=== PATIENT | male | born 1975 | race Caucasian/White ===

== ENCOUNTER 2018-01-09 16:04 | Inpatient (IN) ==
[2018-01-09] MEDS ORDERED: Ondansetron 4 MG/2 ML VIAL IVP ONE (16:35)
[2018-01-09] MEDS ORDERED: 0.9 % Sodium Chloride 1,000 ML IVC ONE ×2 (16:35→17:25)
[2018-01-09] MEDS ORDERED: *HR* FentaNYL (PF) 100 MCG/2 ML VIAL IVP ONE ×2 (16:36→18:33)
--- NOTE | 2018-01-09 16:37 | Emergency Department Note ---
Disposition Clinical Impression: Small bowel obstruction, Hypercalcemia Disposition: Admitted As Inpatient Condition: Fair Time of Disposition: 17:35 Abdominal Pain HPI - General Chief Complaint: ED Abdominal Pain Stated Complaint: abnormal ct results/ called Time Seen by Provider: 01/09/18 16:22 Source: patient Mode of arrival: ambulatory Limitations: no limitations Nursing Notes Reviewed: Yes Vital Signs Reviewed: Yes - History of Present Illness HPI Narrative: 42-year-old male presents for evaluation after an abnormal CT. States intermittent abdominal pain for years. Patient states the pain typically starts and then improves over [address] hours. Patient had a CT scan and pelvis obtained earlier today which showed evidence of bowel obstruction and was told to go the ER for evaluation. Patient states he is having several episodes of nonbilious nonbloody emesis. Patient states he had several episodes of loose stools today. Still passing gas. Reports a remote history of bowel resection with anastomosis is child. No history of bowel obstructions notable in the past. Denies any fevers. Denies any chest pain. reports diffuse mid abdominal pain. Pain Scale: 10 - Related Data Home Medications Medication Instructions Recorded Confirmed Ibuprofen [Motrin] 800 mg PO Q8HR PRN 09/14/16 01/09/18 Pantoprazole Sodium [Protonix] 40 mg PO BID 09/14/16 01/09/18 amLODIPine [Norvasc] 5 mg PO DAILY 09/14/16 01/09/18 Lisinopril/Hydrochlorothiazide 1 each PO DAILY 01/09/18 01/09/18 [Zestoretic 20-25 mg Tablet] Psyllium Husk [Fiber] 1.04 gm PO DAILY 01/09/18 01/09/18 Allergies Allergy/AdvReac Type Severity Reaction Status Date / Time Amoxicillin Allergy Hives Verified 09/14/16 09:09 Penicillins [PCN] Allergy Hives Verified 09/14/16 09:09 All systems ED: reviewed and negative except as stated. Constitutional: Denies: fever ENT ED: Denies: ear pain Cardiovascular: Denies: chest pain Respiratory: Denies: cough, dyspnea Gastrointestinal: Reports: abdominal pain, nausea, vomiting, diarrhea Abdominal Pain PMH - Past Medical History Medical history: Reports: GERD, hyperlipidemia, hypertension Male Surgical History: Reports: hip replacement Psychiatric history: Reports: no psych history - Social History Smoking status: Never smoker Alcohol use: Reports: none Drug use: Reports: none Physical Exam - General Limitations: no limitations General appearance: alert - Head Head exam: atraumatic, normocephalic, normal inspection - Eye Eye exam: Present: normal appearance, PERRL, EOMI - ENT ENT exam: normal exam, normal oropharynx, mucous membranes moist - Neck Neck exam: Present: normal inspection, full ROM, trachea midline - Chest Chest inspection: Present: normal inspection - Respiratory Respiratory exam: Present: normal lung sounds bilaterally - Cardiovascular Cardiovascular exam: Present: regular rate, normal rhythm. Absent: systolic murmur - Abdominal Exam Abdominal exam: Present: soft, tenderness. Absent: distention, guarding, rebound - Extremities Exam Extremities exam: Present: normal inspection - Back Exam Back exam: Present: normal inspection - Neurological Exam Neurological exam: Present: alert, oriented X3, CN II-XII intact - Skin Skin exam: Present: warm, dry, intact, normal color Course Course Narrative: Patient seen and examined. Patient's CAT scan reviewed from earlier today. Shows a partial small bowel obstruction. Patient will get basic labs IV fluids. Patient be admitted for further evaluation and monitoring. Vital Signs Temperature 98.7 F 01/09/18 16:16 Pulse Rate 113 01/09/18 16:16 Respiratory Rate 18 01/09/18 16:16 Blood Pressure 149/95 01/09/18 16:16 O2 Sat by Pulse Oximetry 99 01/09/18 16:16 Temperature 98.7 F 01/09/18 16:16 Pulse Rate 114 01/09/18 17:25 Respiratory Rate 12 01/09/18 17:25 Blood Pressure 140/90 01/09/18 17:25 O2 Sat by Pulse Oximetry 95 01/09/18 17:25 Oxygen Delivery Oxygen Delivery Room Air Abdominal Pain - MDM Narrative Medical decision making narrative: Patient presents with outpatient CT which showed a small bowel obstruction. Case was discussed with the surgeon. Patient will be admitted to hospital service for further evaluation monitoring. Patient's abdominal exam currently is nonsurgical. Patient's symptoms appear to be controlled. Patient is given IV fluids anti-medics and pain control. Patient will be admitted to ensure symptom resolution. Patient does have an elevated white count however given the clinical scenario patient's white count likely due to margination. Patient was not started on antibiotics emergent arm. Patient was treated with IV fluid hydration. Patient was also noted to be hypercalcemic. Patient's lactate was normal. - Lab Data Lab results reviewed: Yes I reviewed the patient's lab results. Result diagrams: 01/09/18 16:49 01/09/18 16:49 Lab Results 01/09/18 01/09/18 01/09/18 Range/Units 16:49 16:49 16:49 WBC 18.4 H (4.3-11.1) K/mcL RBC 6.27 H (4.19-5.50) M/mcL Hgb 17.1 H (12.9-16.9) g/dL Hct 50.4 H (37.5-50.1) % MCV 80.4 L (83.0-100.0) fL MCH 27.3 L (28.0-33.3) pg MCHC 33.9 (31.6-35.5) g/dL RDW 14.8 H (11.5-14.5) % Plt Count 270 (140-400) K/mcL MPV 10.0 (9.4-12.4) fL Immature Gran % 0.5 (0-4) % Seg Neutrophils % 86.2 % Lymphocytes % 5.8 % Monocytes % 7.2 % Eosinophils % 0.1 % Basophils % 0.2 % Neutrophils # 15.8 H (1.6-8.9) K/mcL Lymphocytes # 1.1 (0.6-4.6) K/mcL Monocytes # 1.3 (0.0-1.3) K/mcL Eosinophils # 0.0 (0.0-0.6) K/mcL Basophils # 0.0 (0.0-0.2) K/mcL Sodium 131 L (136-145) mEq/L Potassium 3.8 (3.5-5.1) mEq/L Chloride 93 L (98-107) mEq/L Carbon Dioxide 25 (23-29) mEq/L BUN 16 (6-20) mg/dL Creatinine 0.97 (0.70-1.30) mg/dL Est GFR ( Amer) > 60 (> 60) Est GFR (Non-Af Amer) > 60 (> 60) BUN/Creatinine Ratio 16 (6-26) Glucose 125 H (70-105) mg/dL Calculated Osmolality 275 L (280-300) Lactic Acid 2.2 (0.5-2.2) mmol/L Calcium 10.4 H (8.6-10.3) mg/dL Total Bilirubin 0.8 (0.3-1.0) mg/dL Direct Bilirubin 0.1 (0.0-0.2) mg/dL Indirect Bilirubin 0.7 (0.0-1.2) mg/dL AST 25 (13-39) Units/L ALT 36 (7-52) Units/L Alkaline Phosphatase 123 H (34-104) Units/L Serum Total Protein 8.1 (6.4-8.9) g/dL Albumin 4.8 (3.5-5.7) g/dL Globulin 3.3 (2.4-3.5) g/dL Albumin/Globulin Ratio 1.5 (1.1-2.2) Lipase 20 (11-82) Units/L Urine Color (Yellow) Urine Clarity (Clear) Urine pH (5.0-8.0) pH Units Ur Specific [place] (1.010-1.025) Urine Protein (Neg-Trace) mg/dL Urine Glucose (UA) (Normal) mg/dL Urine Ketones (Negative) mg/dL Urine Blood (Negative) Urine Nitrite (Negative) Urine Bilirubin (Negative) Urine Urobilinogen (Normal) mg/dL Ur Leukocyte Esterase (Negative) Ur Culture Indicated? (NO) 01/09/18 Range/Units 17:03 WBC (4.3-11.1) K/mcL RBC (4.19-5.50) M/mcL Hgb (12.9-16.9) g/dL Hct (37.5-50.1) % MCV (83.0-100.0) fL MCH (28.0-33.3) pg MCHC (31.6-35.5) g/dL RDW (11.5-14.5) % Plt Count (140-400) K/mcL MPV (9.4-12.4) fL Immature Gran % (0-4) % Seg Neutrophils % % Lymphocytes % % Monocytes % % Eosinophils % % Basophils % % Neutrophils # (1.6-8.9) K/mcL Lymphocytes # (0.6-4.6) K/mcL Monocytes # (0.0-1.3) K/mcL Eosinophils # (0.0-0.6) K/mcL Basophils # (0.0-0.2) K/mcL Sodium (136-145) mEq/L Potassium (3.5-5.1) mEq/L Chloride (98-107) mEq/L Carbon Dioxide (23-29) mEq/L BUN (6-20) mg/dL Creatinine (0.70-1.30) mg/dL Est GFR ( Amer) (> 60) Est GFR (Non-Af Amer) (> 60) BUN/Creatinine Ratio (6-26) Glucose (70-105) mg/dL Calculated Osmolality (280-300) Lactic Acid (0.5-2.2) mmol/L Calcium (8.6-10.3) mg/dL Total Bilirubin (0.3-1.0) mg/dL Direct Bilirubin (0.0-0.2) mg/dL Indirect Bilirubin (0.0-1.2) mg/dL AST (13-39) Units/L ALT (7-52) Units/L Alkaline Phosphatase (34-104) Units/L Serum Total Protein (6.4-8.9) g/dL Albumin (3.5-5.7) g/dL Globulin (2.4-3.5) g/dL Albumin/Globulin Ratio (1.1-2.2) Lipase (11-82) Units/L Urine Color Yellow (Yellow) Urine Clarity Clear (Clear) Urine pH 7.0 (5.0-8.0) pH Units Ur Specific [place] 1.021 (1.010-1.025) Urine Protein Negative (Neg-Trace) mg/dL Urine Glucose (UA) Normal (Normal) mg/dL Urine Ketones 15 H (Negative) mg/dL Urine Blood Negative (Negative) Urine Nitrite Negative (Negative) Urine Bilirubin Negative (Negative) Urine Urobilinogen Normal (Normal) mg/dL Ur Leukocyte Esterase Negative (Negative) Ur Culture Indicated? NO (NO) - Radiology Data Radiology results reviewed: Yes I reviewed the patient's radiology results. CT/CT abd pelvis wo no iv no oral IMPRESSION: 1. Partial or early complete small bowel obstruction with focal stricture at the site of small bowel anastomosis in the right upper quadrant. 2. Partially imaged focal consolidation in the medial right lung base most consistent with pneumonia. Follow-up CT of the chest is recommended in 1 month to ensure resolution and to exclude underlying malignancy. 3. Punctate nonobstructing left renal calculus. D/ / Janak Mclean / Janak Mclean Interpreting Provider: Janak Mclean :4 Shanae - Shanae Situation: Demographics Background: Presenting Complaint Assessment: Vital Signs, Course and respsone to treatment, Patient/Family Expectation Recommendation: Barrier(s) to disposition, Recommendation based on pending studies, treatments, or consults Shanae Report Given to: Dr. Nigel Jolly Repor Time: 17:35
[2018-01-09 17:03] LABS: Basophils % 0.2 %; Eosinophils % 0.1 %; Hematocrit 50.4 % (37.5-50.1); Hemoglobin 17.1 g/dL (12.9-16.9); Immature Granulocytes % 0.5 % (0-4); Lymphocytes # 1.1 K/mcL (0.6-4.6); Lymphocytes % 5.8 %; Mean Corpuscular HGB Conc 33.9 g/dL (31.6-35.5); Mean Corpuscular Hemoglobin 27.3 pg (28.0-33.3); Mean Corpuscular Volume 80.4 fL (83.0-100.0); Monocytes # 1.3 K/mcL (0.0-1.3); Monocytes % 7.2 %; Neutrophils # 15.8 K/mcL (1.6-8.9); Platelet Count 270 K/mcL (140-400); Red Blood Count 6.27 M/mcL (4.19-5.50); Red Cell Distribution Width 14.8 % (11.5-14.5); Segmented Neutrophils % 86.2 %
[2018-01-09 17:22] LABS: Alanine Aminotransferase 36 Units/L (7-52); Albumin 4.8 g/dL (3.5-5.7); Albumin/Globulin Ratio 1.5 (1.1-2.2); Alkaline Phosphatase 123 Units/L (34-104); Aspartate Amino Transferase 25 Units/L (13-39); BUN/Creatinine Ratio 16 (6-26); Bilirubin,Direct 0.1 mg/dL (0.0-0.2); Bilirubin,Indirect 0.7 mg/dL (0.0-1.2); Bilirubin,Total 0.8 mg/dL (0.3-1.0); Blood Urea Nitrogen 16 mg/dL (6-20); Calcium 10.4 mg/dL (8.6-10.3); Carbon Dioxide 25 mEq/L (23-29); Chloride 93 mEq/L (98-107); Globulin 3.3 g/dL (2.4-3.5); Glucose 125 mg/dL (70-105); Lipase 20 Units/L (11-82); Osmolality,Calculated 275 (280-300); Potassium 3.8 mEq/L (3.5-5.1); Sodium 131 mEq/L (136-145); Total Protein 8.1 g/dL (6.4-8.9); eGFR For African Americans > 60 (> 60); eGFR For Non-African Americans > 60 (> 60)
--- NOTE | 2018-01-09 17:25 | Emergency Department Note ---
START Narrative - START START: I examined this patient and my medical decision-making was reviewed with the Resident Physician. I agree with the documented findings, disposition and treatment plan as described except to the extent set forth below. 42-year-old male presents emergency room for abdominal pain. Patient is CT scan done as an outpatient and that showed a partially or complete early small bowel obstruction with a focal stricture noted as a transition point. I spoke with general surgery in consultation. Patient will be admitted to the hospitalist. His last bowel movement was this morning. States he has been passing some very very small amount of stool. He has had some nausea and vomiting today as well. No fevers. He does have an elevated white count of 18, 000. We will keep patient nothing by mouth. Antiemetics and pain control and IV fluids.
[2018-01-09 17:28] LABS: Bilirubin,Urine Negative (Negative); Blood,Urine Negative (Negative); Clarity,Urine Clear (Clear); Color,Urine Yellow (Yellow); Glucose,Urine (UA) Normal (Normal); Ketones,Urine 15 mg/dL (Negative); Leukocyte Esterase,Urine Negative (Negative); Nitrite,Urine Negative (Negative); Protein,Urine Negative (Neg-Trace); Specific Gravity,Urine 1.021 (1.010-1.025); Urobilinogen,Urine Normal (Normal)
[2018-01-09] MEDS ORDERED: OXYCODONE Oral CONC 10 MG/0.5 ML ORAL.SYG SL PRN ×2 (18:30)
[2018-01-09] MEDS ORDERED: Ondansetron 4 MG/2 ML VIAL IVP PRN (18:30)
[2018-01-09] MEDS ORDERED: Naloxone 0.4 MG/ML INJ IVP PRN (18:30)
--- NOTE | 2018-01-09 18:40 | Internal Med History&Physical ---
Date of Encounter: 01/09/18 Time of Encounter: 18:37 Assessment and Plan (1) Small bowel obstruction Current visit: Yes Status: Acute Dehydration secondary to small bowel obstruction Nothing by mouth, IV fluids, Zofran, pain control ER physician consulted surgery, consider NG tube Protonix for GI prophylaxis and sequential compression devices for DVT prophylaxis. The patient will be admitted as inpatient, expected to stay more than 2 midnights. Full code. Time spent on this admission 40 minutes. High risk due to sepsis (2) Community acquired pneumonia Current visit: Yes Status: Acute Sepsis secondary to possible community-acquired pneumonia, unknown agent CT scan of the abdomen shows a right middle lobe infiltrate Start Levaquin, blood cultures, IV fluids Qualifiers: Laterality: right Lung location: middle lobe of lung Qualified Code(s): J18.1 - Lobar pneumonia, unspecified organism (3) Sepsis Current visit: Yes Status: Acute Qualifiers: Sepsis type: sepsis due to unspecified organism Qualified Code(s): A41.9 - Sepsis, unspecified organism (4) Dehydration Current visit: Yes Status: Acute Dehydration secondary to small bowel obstruction (5) Hypertension Current visit: Yes Status: Acute Use hydralazine IV as needed Hold amlodipine, lisinopril and hydrochlorothiazide Qualifiers: Hypertension type: essential hypertension Qualified Code(s): I10 - Essential (primary) hypertension (6) Hypercalcemia Current visit: Yes Status: Acute Likely secondary to dehydration, recheck in the morning Internal Medicine - H&P: HPI Chief complaint: Abdominal pain Admitted From: Emergency Dept History of present illness: Mr. Dunn is a 42 year old male with a past medical history of cerebral palsy, gastric ulcers, GERD, hypertension and chronic abdominal pain for the past year , he been having this problem on and off and usually his pain resolved in 24 hours, he is having some vomiting, passing minimal gas in complaining of diffuse generalized abdominal pain. He was seen by Dr. Adam who ordered a CT scan of the abdomen which showed a partial small bowel obstruction or possible early complete bowel obstruction, also demonstrated possible right middle long infiltrate/pneumonia. White blood cell count is 18.4 heart rate 114 hemoglobin 17.1 sodium 131 and glucose 125. The patient received some fentanyl, the pain has improved, blood pressures 149/95. He is weak, appears dehydrated, no other complaints Past Med Surg Social Fam HX - Past Medical History Medical history: GERD, hyperlipidemia, hypertension, other (History of nonbleeding gastric ulcers, cerebral palsy) Psychiatric history: no psych history - Past Surgical History Surgical History: hip replacement, other (Right hip replacement) - Social History Smoking Status: Never smoker Smokeless Tobacco Status: No Alcohol use: none Drug use: none - Additional Family History Additional family history: Mother with heart disease Internal Medicine - H&P: Meds Ibuprofen [Motrin] 800 mg PO Q8HR PRN 09/14/16 [History] Pantoprazole Sodium [Protonix] 40 mg PO BID 09/14/16 [History] amLODIPine [Norvasc] 5 mg PO DAILY 09/14/16 [History] Lisinopril/Hydrochlorothiazide [Zestoretic 20-25 mg Tablet] 1 each PO DAILY 06/21 [History] Psyllium Husk [Fiber] 1.04 gm PO DAILY 01/09/18 [History] 3 Allergy/AdvReac Type Severity Reaction Status Date / Time Amoxicillin Allergy Hives Verified 09/14/16 09:09 Penicillins [PCN] Allergy Hives Verified 09/14/16 09:09 All Systems PM: A 10-system review of systems was performed and is negative for pertinent findings except as documented above in the HPI. Review of systems: No shortness of breath, no dysuria, no fevers, other systems out of the 10 reviewed were negative - Constitutional Vitals: Temp Pulse Resp BP Pulse Ox 98.7 F 114 12 140/90 95 01/09/18 16:16 01/09/18 17:25 01/09/18 17:25 01/09/18 17:25 01/09/18 17:25 General appearance: Present: A&O X 3 - Head Head exam: Present: atraumatic, normocephalic Additional comments: Dry mucosa, tachycardia - Eye Eye exam: Present: PERRL, conjuntiva pink, sclera anicteric Pupils: Present: PERRL - Neck Neck exam general surgery: Present: supple, trachea midline. Absent: lymphadenopathy - Respiratory Respiratory exam: Present: CTAB. Absent: accessory muscle use, rales, rhonchi, wheezes - Cardiovascular Cardiovascular exam: Present: RRR, +S1, +S2. Absent: diastolic murmur, gallop, rubs, systolic murmur - GI/Abdominal GI/Abdominal exam: Present: normal bowel sounds, soft, tenderness (Diffuse abdominal tenderness), no peritoneal signs. Absent: distended - Extremities Exam Extremities exam: Present: warm, radial pulses palpable and symmetrical. Absent : calf tenderness, cyanotic, pedal edema - Neurological Exam Neurological exam: Present: CN II-XII intact, oriented X3, no focal deficits. Absent: pronater drift, facial droop, speech deficit - Skin Skin exam: Present: dry, intact Internal Med - H&P Results - Labs CBC & Chem 7: 01/09/18 16:49 01/09/18 16:49
[2018-01-09] MEDS ORDERED: *HR* FentaNYL (PF) 100 MCG/2 ML VIAL ONE (18:45)
--- NOTE | 2018-01-09 19:46 | General Surgery Consult Note ---
Date of Encounter: 01/09/18 Time of Encounter: 19:42 Assessment and Plan (1) Abdominal pain Current Visit: Yes Status: Acute 42M with complex medical history presents with recurrence of a long standing history of abdominal pain; there is concern for obstruction, but the current imaging, in my view, does not definitely rule it in or out as the patient is still having bowel function. NPO IVF UGI with SBFT: can be diagnostic and therapeutic; follow up with CT scan with IV contrast recommend performing imaging studies even if pain resolves will continue to follow no acute surgery Qualifiers: Abdominal location: generalized Qualified Code(s): R10.84 - Generalized abdominal pain History of Present Illness Consult date: 01/09/18 Reason for consult: abdominal pain History of present illness: 42M with a pMH of ex lap with bowel resection when he was a for what sounds like ischemic bowel, gERD, gastric ulcers, HTN, cerebral palsy who presents with recurrence of abdominal pain. The pain is localized to his midabdomen with associated poor PO intake. It is non radiating and has no associated fevers, chills. When questioned further he states that this problem has been on going for years where he has abdominal pain that is severe, then resolves in a day without further work up or management. He also states that he has a history of constipation. His solution to that at present is increasing the fiber in his diet. surgery was consulted for work up and management recommendations. Of note, he is still having bowel function. His last bowel movement and flatus was today. Past Med Surg Social Fam HX - Past Medical History Medical history: GERD, hyperlipidemia, hypertension, other (History of nonbleeding gastric ulcers, cerebral palsy) Psychiatric history: no psych history - Past Surgical History Surgical History: hip replacement, other (Right hip replacement) - Social History Smoking Status: Never smoker Smokeless Tobacco Status: No Alcohol use: none Drug use: none - Additional Family History Additional family history: non contributory Medications and Allergies Ibuprofen [Motrin] 800 mg PO Q8HR PRN 09/14/16 [History] Pantoprazole Sodium [Protonix] 40 mg PO BID 09/14/16 [History] amLODIPine [Norvasc] 5 mg PO DAILY 09/14/16 [History] Lisinopril/Hydrochlorothiazide [Zestoretic 20-25 mg Tablet] 1 each PO DAILY 06/21 [History] Psyllium Husk [Fiber] 1.04 gm PO DAILY 01/09/18 [History] 3 Allergy/AdvReac Type Severity Reaction Status Date / Time Amoxicillin Allergy Hives Verified 09/14/16 09:09 Penicillins [PCN] Allergy Hives Verified 09/14/16 09:09 Review of Systems All systems PM: The remainder of the systems were reviewed and are negative General Surgery Exam Initial Vital Signs Temp Pulse Resp BP Pulse Ox 98.7 F 113 18 149/95 99 01/09/18 16:16 01/09/18 16:16 01/09/18 16:16 01/09/18 16:16 01/09/18 16:16 - General physical appearance well developed, well nourished, no distress - Eyes normal ocular movement - ENT normocephalic - Neck no lymphadectomy - Respiratory normal expansion, normal respiratory effort - Cardiovascular Cardiovascular exam: Present: RRR - Abdomen Abdomen general surgery: Present: soft, tender, surgical scars Abdominal Tenderness: Present: epigastic, RUQ, LUQ, RLQ, LLQ - Integumentary Integumentary general surgery: Present: warm and dry - Psychiatric Psychiatric general surgery: Present: A&Ox3 Exam Initial Vital Signs Temp Pulse Resp BP Pulse Ox 98.7 F 113 18 149/95 99 01/09/18 16:16 01/09/18 16:16 01/09/18 16:16 01/09/18 16:16 01/09/18 16:16 Results - Labs 01/09/18 16:49 01/09/18 16:49 Abnormal lab results WBC 18.4 K/mcL (4.3-11.1) H 01/09/18 16:49 RBC 6.27 M/mcL (4.19-5.50) H 01/09/18 16:49 Hgb 17.1 g/dL (12.9-16.9) H 01/09/18 16:49 Hct 50.4 % (37.5-50.1) H 01/09/18 16:49 MCV 80.4 fL (83.0-100.0) L 01/09/18 16:49 MCH 27.3 pg (28.0-33.3) L 01/09/18 16:49 RDW 14.8 % (11.5-14.5) H 01/09/18 16:49 Neutrophils # 15.8 K/mcL (1.6-8.9) H 01/09/18 16:49 Sodium 131 mEq/L (136-145) L 01/09/18 16:49 Chloride 93 mEq/L (98-107) L 01/09/18 16:49 Glucose 125 mg/dL (70-105) H 01/09/18 16:49 Calculated Osmolality 275 (280-300) L 01/09/18 16:49 Calcium 10.4 mg/dL (8.6-10.3) H 01/09/18 16:49 Alkaline Phosphatase 123 Units/L (34-104) H 01/09/18 16:49 Urine Ketones 15 mg/dL (Negative) H 01/09/18 17:03 All other labs normal. - Imaging CT scan - abdomen: report reviewed, image reviewed CT scan - pelvis: report reviewed, image reviewed (all imaging reviewed and interpreted by me in combination with radiology reads) Consult Discharge Plan - Plan Referrals: Jannette Manjarrez, JACK SETTER [Primary Care Provider] -
[2018-01-09] MEDS: Pantoprazole 40 MG VIAL IVP SCH (20:06)
[2018-01-09] MEDS: 0.9 % Sodium Chloride 1,000 ML IVC SCH (20:10)
[2018-01-09] MEDS: Levofloxacin 750 MG/150 ML 750 MG/150 ML BAG IVPB SCH (20:11)
[2018-01-09] MEDS: *HR* FentaNYL (PF) 100 MCG/2 ML VIAL IVP PRN (21:08)
[2018-01-10] MEDS: 0.9 % Sodium Chloride 1,000 ML IVC SCH (04:23)
[2018-01-10] MEDS: Pantoprazole 40 MG VIAL IVP SCH ×2 (05:31→17:11)
[2018-01-10 05:56] LABS: Hematocrit 42.3 % (37.5-50.1); Mean Corpuscular HGB Conc 33.6 g/dL (31.6-35.5); Mean Corpuscular Hemoglobin 27.4 pg (28.0-33.3); Mean Corpuscular Volume 81.7 fL (83.0-100.0); Mean Platelet Volume 10.3 fL (9.4-12.4); Platelet Count 209 K/mcL (140-400); Red Blood Count 5.18 M/mcL (4.19-5.50); Red Cell Distribution Width 13.9 % (11.5-14.5)
[2018-01-10] MEDS ORDERED: *HR* Heparin 5,000 UNIT/ML VIAL SQ SCH (06:00)
[2018-01-10 06:08] LABS: BUN/Creatinine Ratio 13 (6-26); Blood Urea Nitrogen 12 mg/dL (6-20); Calcium 8.8 mg/dL (8.6-10.3); Carbon Dioxide 24 mEq/L (23-29); Chloride 105 mEq/L (98-107); Glucose 96 mg/dL (70-105); Osmolality,Calculated 280 (280-300); Sodium 135 mEq/L (136-145); eGFR For African Americans > 60 (> 60); eGFR For Non-African Americans > 60 (> 60)
[2018-01-10 06:20] LABS: Hemoglobin 14.2 g/dL (12.9-16.9)
[2018-01-10] MEDS: *HR* FentaNYL (PF) 100 MCG/2 ML VIAL IVP PRN (09:29)
--- NOTE | 2018-01-10 10:48 | General Surgery Progress Note ---
<Grecia Horn H - Last Filed: 01/10/18 10:45> Date of Encounter: 01/10/18 Time of Encounter: 10:45 - Assessment and Plan (1) Abdominal pain Current Visit: Yes Status: Acute 42-year-old male with complex medical history presenting with recurrence of long -standing history of abdominal pain. Patient having bowel function. -Follow-up small bowel follow-through. -If small bowel follow-through okay, can advance to [facility]. -We will order a CT of the abdomen and pelvis with IV contrast tomorrow- recommend imaging studies even if pain resolves. -We will continue to follow. -No acute surgery. Qualifiers: Abdominal location: generalized Qualified Code(s): R10.84 - Generalized abdominal pain Subjective Patient reports: no new complaints, feels better, pain is less, flatus, bowel movement, afebrile Objective Vital Signs - Last 8 Hours Temp Pulse Resp BP Pulse Ox 01/10/18 08:11 96 01/10/18 06:40 98.1 F 94 14 114/73 96 01/10/18 04:16 98.2 F 88 16 116/75 95 Intake and Output 01/09/18 01/10/18 01/10/18 23:59 07:59 15:59 Intake Total 1000 / 1000 Output Total 1150 / 1150 0 / 0 Balance -150 / -150 0 / 0 Intake: IV Fluids 1000 / 1000 0.9 % Sodium Chloride 1,000 ML 1000 / 1000 @ 150 mls/hr IVC .[id number] [facility] Rx #:[id number] Output: Urine 1150 / 1150 0 / 0 Other: Meal NPO BREAKFAST Weight 89.358 kg 89.358 kg Blood Glucose* 92 Patient Weight 01/10/18 23:59 Weight 89.358 kg - General physical appearance well developed, well nourished, no distress - Eyes normal ocular movement - ENT normocephalic - Respiratory normal expansion, normal respiratory effort, clear to auscultation - Cardiovascular Cardiovascular exam: Present: RRR, no murmurs/rubs/gallops - Abdomen Abdomen: Present: bowel sounds present, soft, surgical scars Abdominal Tenderness: diffusely (mild) Hernia: none - Integumentary no rash - Neurologic CN 2-12 grossly intact, normal coordination - Musculoskeletal normal posture - Psychiatric oriented to time, oriented to person, oriented to place, speech is normal, memory intact - Labs 01/10/18 05:18 01/10/18 05:18 Diabetes panel 01/10/18 Range/Units 05:18 Sodium 135 L (136-145) mEq/L Potassium 4.0 (3.5-5.1) mEq/L Chloride 105 (98-107) mEq/L Carbon Dioxide 24 (23-29) mEq/L BUN 12 (6-20) mg/dL Creatinine 0.90 (0.70-1.30) mg/dL Glucose 96 (70-105) mg/dL Calcium 8.8 (8.6-10.3) mg/dL Calcium panel 01/10/18 Range/Units 05:18 Calcium 8.8 (8.6-10.3) mg/dL Pituitary panel 01/10/18 Range/Units 05:18 Sodium 135 L (136-145) mEq/L Potassium 4.0 (3.5-5.1) mEq/L Chloride 105 (98-107) mEq/L Carbon Dioxide 24 (23-29) mEq/L BUN 12 (6-20) mg/dL Creatinine 0.90 (0.70-1.30) mg/dL Glucose 96 (70-105) mg/dL Calcium 8.8 (8.6-10.3) mg/dL Adrenal panel 01/10/18 Range/Units 05:18 Sodium 135 L (136-145) mEq/L Potassium 4.0 (3.5-5.1) mEq/L Chloride 105 (98-107) mEq/L Carbon Dioxide 24 (23-29) mEq/L BUN 12 (6-20) mg/dL Creatinine 0.90 (0.70-1.30) mg/dL Glucose 96 (70-105) mg/dL Calcium 8.8 (8.6-10.3) mg/dL Consult Discharge Plan - Plan Referrals: Jannette Manjarrez, [employer] [Primary Care Provider] - <Eric Javed - Last Filed: 01/11/18 11:10> Date of Encounter: 01/11/18 - Assessment and Plan (1) Abdominal pain Current Visit: Yes Status: Acute Qualifiers: Abdominal location: generalized Qualified Code(s): R10.84 - Generalized abdominal pain Objective Vital Signs - Last 8 Hours Temp Pulse Resp BP Pulse Ox 01/11/18 11:00 98.3 F 76 15 115/76 97 01/11/18 06:58 97.8 F 78 16 123/75 96 01/11/18 04:07 97.7 F 81 14 125/76 95 Intake and Output 01/10/18 01/11/18 01/11/18 23:59 07:59 15:59 Intake Total 390 / 390 0 / 0 Output Total 0 / 0 0 / 0 Balance 390 / 390 0 / 0 Intake: IV Fluids 150 / 150 Levaquin Premix 750mg/150 mL 150 / 150 750 mg In 150 ml @ 100 mls/hr IVPB Q24H [facility] Rx#:[id number] Oral 240 / 240 0 / 0 Output: Urine 0 / 0 0 / 0 Other: # Voids 1 0 Weight 89.358 kg Patient Weight 01/11/18 23:59 Weight 89.358 kg - Labs 01/11/18 04:44 01/11/18 04:44 Diabetes panel 01/11/18 Range/Units 04:44 Sodium 137 (136-145) mEq/L Potassium 4.1 (3.5-5.1) mEq/L Chloride 104 (98-107) mEq/L Carbon Dioxide 27 (23-29) mEq/L BUN 13 (6-20) mg/dL Creatinine 1.07 (0.70-1.30) mg/dL Glucose 96 (70-105) mg/dL Calcium 9.3 (8.6-10.3) mg/dL Calcium panel 01/11/18 Range/Units 04:44 Calcium 9.3 (8.6-10.3) mg/dL Pituitary panel 01/11/18 Range/Units 04:44 Sodium 137 (136-145) mEq/L Potassium 4.1 (3.5-5.1) mEq/L Chloride 104 (98-107) mEq/L Carbon Dioxide 27 (23-29) mEq/L BUN 13 (6-20) mg/dL Creatinine 1.07 (0.70-1.30) mg/dL Glucose 96 (70-105) mg/dL Calcium 9.3 (8.6-10.3) mg/dL Adrenal panel 01/11/18 Range/Units 04:44 Sodium 137 (136-145) mEq/L Potassium 4.1 (3.5-5.1) mEq/L Chloride 104 (98-107) mEq/L Carbon Dioxide 27 (23-29) mEq/L BUN 13 (6-20) mg/dL Creatinine 1.07 (0.70-1.30) mg/dL Glucose 96 (70-105) mg/dL Calcium 9.3 (8.6-10.3) mg/dL - Attending Attestation Patient seen and examined. I have reviewed all imaging, labs, and notes including this one. I have discussed with the resident in detail about the plan. I agree with the above assessment and plan and wish to add the following... Recommend CT scan of the abdomen and pelvis prior to discharge; if no surgical abnormalities are found, okay to discharge with plans for follow up with his PCP.
--- NOTE | 2018-01-10 15:23 | Internal Med Progress Note ---
<Willian Zhang - Last Filed: 01/10/18 15:48> Date of Encounter: 01/10/18 Time of Encounter: 15:30 - Assessment and plan (1) Abdominal pain Current Visit: Yes Status: Acute Assessment and plan: Chronic recurrent abdominal pain. -Surgery following, appreciate further recommendation and plan. -Small bowel follow-through:Dilated small bowel loop in the midabdomen corresponding to the recent CT. Contrast transits through this small bowel loop into the distal ileum by 45 minutes. The proximal small bowel is not dilated. No abnormality identified in the esophagus or stomach. -Advanced to CLD by surgery -Plan for repeat CT of the abdomen and pelvis with IV contrast tomorrow. -No acute surgery indicated. Qualifiers: Abdominal location: generalized Qualified Code(s): R10.84 - Generalized abdominal pain (2) Small bowel obstruction Current Visit: Yes Status: Suspected (3) Community acquired pneumonia Current Visit: Yes Status: Acute Assessment and plan: CT scan of the abdomen shows a right middle lobe infiltrate. Patient was started on Levaquin, blood cultures ordered, and IVF Patient denies respiratory distress, good O2 saturation on room air. Qualifiers: Laterality: right Lung location: middle lobe of lung Qualified Code(s): J18.1 - Lobar pneumonia, unspecified organism (4) Dehydration Current Visit: Yes Status: Acute (5) Hypercalcemia Current Visit: Yes Status: Acute Assessment and plan: Improved with hydration 10.4 to 8.8 (6) Hypertension Current Visit: Yes Status: Resolved Assessment and plan: Likely secondary to pain, currently normotensive Qualifiers: Hypertension type: essential hypertension Qualified Code(s): I10 - Essential (primary) hypertension (7) Sepsis Current Visit: Yes Status: Resolved Assessment and plan: Initially Tachycardiac, Leukocytosis of 18.4, lactic acid 2.2, with possible pneumonia. Leukocytosis resolved, no respiratory diffiuly/no supplemental O2 needed, tachycardiac improving. Qualifiers: Sepsis type: sepsis due to unspecified organism Qualified Code(s): A41.9 - Sepsis, unspecified organism - Subjective Interval history: Patient seen and examined at bedside, denies any acute distress, denies nausea. Patient expresses frustration noting that he has been dealing with these symptoms for 8 years and they normal resolve within 24 hours, he states we are not doing anything different here and doesn't just want the pain to go away ( which he saids has) he wants a solution to the recurrent pain. Patient afebrile , vitals stable. SBFT showed movement of fluid to colon. - Constitutional Vitals: Temp Pulse Resp BP Pulse Ox 98.7 F 91 16 130/78 95 01/10/18 14:40 01/10/18 14:40 01/10/18 14:40 01/10/18 14:40 01/10/18 14:40 General appearance: Present: cooperative, A&O X 3, no acute distress, answers questions appropriately - Head Head exam: Present: atraumatic, normocephalic - Eye Eye exam: Present: conjuntiva pink, sclera anicteric - Neck Neck exam general surgery: Present: full ROM, supple, trachea midline - Respiratory Respiratory exam: Present: CTAB. Absent: accessory muscle use, rales, rhonchi, wheezes - Cardiovascular Cardiovascular exam: Present: RRR, +S1, +S2. Absent: diastolic murmur, gallop, rubs, systolic murmur - GI/Abdominal GI/Abdominal exam: Present: normal bowel sounds, soft, no peritoneal signs. Absent: distended, tenderness - Extremities Exam Extremities exam: Present: warm. Absent: calf tenderness, cyanotic, pedal edema - Neurological Exam Neurological exam: Present: alert, oriented X3, no focal deficits. Absent: facial droop, speech deficit - Skin Skin exam: Present: dry, intact Internal Medicine: Result - Labs CBC & Chem 7: 01/10/18 05:18 01/10/18 05:18 Labs: Short CBC 01/10/18 Range/Units 05:18 WBC 7.2 D (4.3-11.1) K/mcL Hgb 14.2 D (12.9-16.9) g/dL Hct 42.3 (37.5-50.1) % Plt Count 209 (140-400) K/mcL BMP 01/10/18 05:18 Sodium 135 L Potassium 4.0 Chloride 105 Carbon Dioxide 24 BUN 12 Creatinine 0.90 Glucose 96 Calcium 8.8 - Impressions Impressions Upper GI and Small Bowel X-Ray 01/10/18 08:00 IMPRESSION: Dilated small bowel loop in the midabdomen corresponding to the recent CT. Contrast transits through this small bowel loop into the distal ileum by 45 minutes. The proximal small bowel is not dilated. No abnormality identified in the esophagus or stomach. D/ / 01/10/2018 11:16:13 Gama Pascual MD / [facility] Interpreting Provider: Gama Pascual MD Consult Discharge Plan - Plan Referrals: Jannette Manjarrez, LODGING MANAGER [Primary Care Provider] - <Scott Raza - Last Filed: 01/10/18 18:58> Date of Encounter: 01/10/18 - Assessment and plan (1) Partial small bowel obstruction Current Visit: Yes Status: Acute (2) Dehydration Current Visit: Yes Status: Resolved (3) Hypertension Current Visit: Yes Status: Resolved Qualifiers: Hypertension type: essential hypertension Qualified Code(s): I10 - Essential (primary) hypertension (4) Sepsis Current Visit: Yes Status: Resolved Qualifiers: Sepsis type: sepsis due to unspecified organism Qualified Code(s): A41.9 - Sepsis, unspecified organism (5) Hypercalcemia Current Visit: Yes Status: Resolved - Constitutional Vitals: Temp Pulse Resp BP Pulse Ox 98.7 F 91 16 130/78 95 01/10/18 14:40 01/10/18 14:40 01/10/18 14:40 01/10/18 14:40 01/10/18 14:40 Internal Medicine: Result - Labs CBC & Chem 7: 01/10/18 05:18 01/10/18 05:18 Labs: Short CBC 01/10/18 Range/Units 05:18 WBC 7.2 D (4.3-11.1) K/mcL Hgb 14.2 D (12.9-16.9) g/dL Hct 42.3 (37.5-50.1) % Plt Count 209 (140-400) K/mcL BMP 01/10/18 05:18 Sodium 135 L Potassium 4.0 Chloride 105 Carbon Dioxide 24 BUN 12 Creatinine 0.90 Glucose 96 Calcium 8.8 - Impressions Impressions Upper GI and Small Bowel X-Ray 01/10/18 08:00 IMPRESSION: Dilated small bowel loop in the midabdomen corresponding to the recent CT. Contrast transits through this small bowel loop into the distal ileum by 45 minutes. The proximal small bowel is not dilated. No abnormality identified in the esophagus or stomach. D/ / 01/10/2018 11:16:13 Gama Pascual MD / [facility] Interpreting Provider: Gama Psacual MD - Attending Attestation Mr Dunn is currently admitted with acute partial SBO. He remains moderate to high risk due to potential for worsening clinical status. Mr Dunn is very frustrated. He feels that nothing has been done with the problem. Pain is still there but overall better. Tolerating clears. Exam alert Comfortable Mucus membranes dry Heart reg No wheeze Abd tender mid area. I/P 1 SBO - per surgery. On clears now 2. Sepsis - tachycardic and WBC elevated on admit. Now resolved. Further diagnoses and plan as above.
[2018-01-10] MEDS ORDERED: Acetaminophen 325 MG TABLET PO PRN (16:47)
[2018-01-10] MEDS: Levofloxacin 750 MG/150 ML 750 MG/150 ML BAG IVPB SCH (21:21)
[2018-01-11 05:04] LABS: Basophils % 0.6 %; Eosinophils # 0.2 K/mcL (0.0-0.6); Eosinophils % 3.1 %; Hematocrit 42.5 % (37.5-50.1); Immature Granulocytes % 0.7 % (0-4); Lymphocytes # 1.6 K/mcL (0.6-4.6); Lymphocytes % 29.4 %; Mean Corpuscular HGB Conc 32.9 g/dL (31.6-35.5); Mean Corpuscular Hemoglobin 27.3 pg (28.0-33.3); Mean Corpuscular Volume 82.8 fL (83.0-100.0); Mean Platelet Volume 10.1 fL (9.4-12.4); Monocytes # 0.6 K/mcL (0.0-1.3); Monocytes % 11.1 %; Platelet Count 197 K/mcL (140-400); Red Blood Count 5.13 M/mcL (4.19-5.50); Red Cell Distribution Width 13.9 % (11.5-14.5); Segmented Neutrophils % 55.1 %
[2018-01-11] MEDS: Pantoprazole 40 MG VIAL IVP SCH ×2 (05:10→17:57)
[2018-01-11 05:20] LABS: BUN/Creatinine Ratio 12 (6-26); Blood Urea Nitrogen 13 mg/dL (6-20); Calcium 9.3 mg/dL (8.6-10.3); Carbon Dioxide 27 mEq/L (23-29); Chloride 104 mEq/L (98-107); Glucose 96 mg/dL (70-105); Osmolality,Calculated 284 (280-300); Potassium 4.1 mEq/L (3.5-5.1); Sodium 137 mEq/L (136-145); eGFR For African Americans > 60 (> 60); eGFR For Non-African Americans > 60 (> 60)
--- NOTE | 2018-01-11 16:55 | General Surgery Progress Note ---
<CrispincrispinGrecia west H - Last Filed: 01/11/18 16:53> Date of Encounter: 01/11/18 Time of Encounter: 10:00 - Assessment and Plan (1) Abdominal pain Current Visit: Yes Status: Acute 42-year-old male with PMHx of bowel resection as a presenting with recurrence of long-standing history of abdominal pain. Patient having bowel function. -SBFT WNL -CT abdomen/pelvis with IV and oral contrast demonstrates resolved SBO. -Will advance diet. -Patient likely discharge tomorrow from a surgical perspective if tolerating diet. -Will discuss the need for diagnostic laparoscopy as an outpatient with Dr. Hunt. Qualifiers: Abdominal location: generalized Qualified Code(s): R10.84 - Generalized abdominal pain (2) Community acquired pneumonia Current Visit: Yes Status: Acute CT abdomen and pelvis on 01/11/2018 demonstrates interval worsening of right lower lobe infiltrate. -Continue management per primary team. Qualifiers: Laterality: right Lung location: middle lobe of lung Qualified Code(s): J18.1 - Lobar pneumonia, unspecified organism Subjective Patient reports: no new complaints, feels better, pain is less, tolerating liquids well, flatus, afebrile Objective Vital Signs - Last 8 Hours Temp Pulse Resp BP Pulse Ox 01/11/18 14:55 98.5 F 87 16 132/78 98 01/11/18 11:00 98.3 F 76 15 115/76 97 Intake and Output 01/11/18 01/11/18 01/11/18 07:59 15:59 23:59 Intake Total 0 / 0 0 / 0 Output Total 0 / 0 Balance 0 / 0 0 / 0 Intake: Oral 0 / 0 0 / 0 Output: Urine 0 / 0 Other: # Voids 0 0 Weight 89.358 kg Patient Weight 01/11/18 23:59 Weight 89.358 kg - General physical appearance well developed, well nourished, no distress - Eyes normal ocular movement - ENT normocephalic - Respiratory normal expansion, normal respiratory effort, clear to auscultation - Cardiovascular Cardiovascular exam: Present: RRR, no murmurs/rubs/gallops - Abdomen Abdomen: Present: bowel sounds present, soft, non tender, surgical scars Hernia: none - Integumentary no rash - Neurologic CN 2-12 grossly intact, normal coordination, normal sensation - Musculoskeletal normal gait, normal posture - Psychiatric oriented to time, oriented to person, oriented to place, speech is normal, memory intact - Labs 01/11/18 04:44 01/11/18 04:44 Diabetes panel 01/11/18 Range/Units 04:44 Sodium 137 (136-145) mEq/L Potassium 4.1 (3.5-5.1) mEq/L Chloride 104 (98-107) mEq/L Carbon Dioxide 27 (23-29) mEq/L BUN 13 (6-20) mg/dL Creatinine 1.07 (0.70-1.30) mg/dL Glucose 96 (70-105) mg/dL Calcium 9.3 (8.6-10.3) mg/dL Calcium panel 01/11/18 Range/Units 04:44 Calcium 9.3 (8.6-10.3) mg/dL Pituitary panel 01/11/18 Range/Units 04:44 Sodium 137 (136-145) mEq/L Potassium 4.1 (3.5-5.1) mEq/L Chloride 104 (98-107) mEq/L Carbon Dioxide 27 (23-29) mEq/L BUN 13 (6-20) mg/dL Creatinine 1.07 (0.70-1.30) mg/dL Glucose 96 (70-105) mg/dL Calcium 9.3 (8.6-10.3) mg/dL Adrenal panel 01/11/18 Range/Units 04:44 Sodium 137 (136-145) mEq/L Potassium 4.1 (3.5-5.1) mEq/L Chloride 104 (98-107) mEq/L Carbon Dioxide 27 (23-29) mEq/L BUN 13 (6-20) mg/dL Creatinine 1.07 (0.70-1.30) mg/dL Glucose 96 (70-105) mg/dL Calcium 9.3 (8.6-10.3) mg/dL Consult Discharge Plan - Plan Referrals: Jannette Manjarrez, WORKERS COMPENSATION CLAIMS SPECIALIST [Primary Care Provider] - <Basia Hunt - Last Filed: 01/11/18 18:50> Date of Encounter: 01/11/18 - Assessment and Plan (1) Abdominal pain Current Visit: Yes Status: Acute pain completely resolved, CT wnl patients symptoms are most likely due to adhesions, recommend diagnostic laparoscopy as outpatient advance diet Qualifiers: Abdominal location: generalized Qualified Code(s): R10.84 - Generalized abdominal pain (2) Community acquired pneumonia Current Visit: Yes Status: Acute Qualifiers: Laterality: right Lung location: middle lobe of lung Qualified Code(s): J18.1 - Lobar pneumonia, unspecified organism (3) Partial small bowel obstruction Current Visit: Yes Status: Resolved Subjective Patient reports: no new complaints, feels better (denies further abdominal pain) , tolerating liquids well, flatus, afebrile Objective Vital Signs - Last 8 Hours Temp Pulse Resp BP Pulse Ox 01/11/18 14:55 98.5 F 87 16 132/78 98 01/11/18 11:00 98.3 F 76 15 115/76 97 Intake and Output 01/11/18 01/11/18 01/11/18 07:59 15:59 23:59 Intake Total 0 / 0 0 / 0 Output Total 0 / 0 Balance 0 / 0 0 / 0 Intake: Oral 0 / 0 0 / 0 Output: Urine 0 / 0 Other: # Voids 0 0 Weight 89.358 kg Patient Weight 01/11/18 23:59 Weight 89.358 kg - General physical appearance well developed, well nourished, no distress, no pain - Eyes PERRL, normal ocular movement - ENT normal mucosa, normocephalic - Neck Neck exam: trachea midline - Respiratory normal expansion, clear to auscultation - Cardiovascular Cardiovascular exam: Present: RRR, no murmurs/rubs/gallops - Abdomen Abdomen: Present: bowel sounds present, soft, non tender, surgical scars - Integumentary no rash - Neurologic CN 2-12 grossly intact, normal coordination, normal sensation - Musculoskeletal normal posture - Psychiatric oriented to time, oriented to person, oriented to place, speech is normal, memory intact - Labs 01/11/18 04:44 01/11/18 04:44 Diabetes panel 01/11/18 Range/Units 04:44 Sodium 137 (136-145) mEq/L Potassium 4.1 (3.5-5.1) mEq/L Chloride 104 (98-107) mEq/L Carbon Dioxide 27 (23-29) mEq/L BUN 13 (6-20) mg/dL Creatinine 1.07 (0.70-1.30) mg/dL Glucose 96 (70-105) mg/dL Calcium 9.3 (8.6-10.3) mg/dL Calcium panel 01/11/18 Range/Units 04:44 Calcium 9.3 (8.6-10.3) mg/dL Pituitary panel 01/11/18 Range/Units 04:44 Sodium 137 (136-145) mEq/L Potassium 4.1 (3.5-5.1) mEq/L Chloride 104 (98-107) mEq/L Carbon Dioxide 27 (23-29) mEq/L BUN 13 (6-20) mg/dL Creatinine 1.07 (0.70-1.30) mg/dL Glucose 96 (70-105) mg/dL Calcium 9.3 (8.6-10.3) mg/dL Adrenal panel 01/11/18 Range/Units 04:44 Sodium 137 (136-145) mEq/L Potassium 4.1 (3.5-5.1) mEq/L Chloride 104 (98-107) mEq/L Carbon Dioxide 27 (23-29) mEq/L BUN 13 (6-20) mg/dL Creatinine 1.07 (0.70-1.30) mg/dL Glucose 96 (70-105) mg/dL Calcium 9.3 (8.6-10.3) mg/dL - Imaging CT scan - abdomen: report reviewed, image reviewed CT Scan - head: report reviewed, image reviewed Additional Studies: small bowel follow through images reviewed - Attending Attestation I examined this patient and my medical decision-making was reviewed with the Resident Physician. I agree with the documented findings, disposition and treatment plan as described except to the extent set forth below.
[2018-01-11] MEDS: Levofloxacin 750 MG/150 ML 750 MG/150 ML BAG IVPB SCH (17:56)
--- NOTE | 2018-01-11 18:08 | Internal Med Progress Note ---
Date of Encounter: 01/11/18 Time of Encounter: 16:30 - Assessment and plan (1) Partial small bowel obstruction Current Visit: Yes Status: Acute Assessment and plan: CT shows it has resolved. Diet to be increased. Reassess tomorrow. (2) Dehydration Current Visit: Yes Status: Resolved Assessment and plan: Resolved (3) Hypertension Current Visit: Yes Status: Resolved Assessment and plan: Normotensive Qualifiers: Hypertension type: essential hypertension Qualified Code(s): I10 - Essential (primary) hypertension (4) Sepsis Current Visit: Yes Status: Resolved Assessment and plan: Initially Tachycardiac, Leukocytosis of 18.4, lactic acid 2.2, with possible pneumonia. Leukocytosis resolved, no respiratory diffiuly/no supplemental O2 needed, tachycardiac improving. Qualifiers: Sepsis type: sepsis due to unspecified organism Qualified Code(s): A41.9 - Sepsis, unspecified organism (5) Hypercalcemia Current Visit: Yes Status: Resolved Assessment and plan: Improved with hydration - Subjective Interval history: Mr Dunn is currently admitted for acute SBO. He remains moderate to high risk due to potential for worsening clinical status. Mr Dunn had CT today. No obstruction seen. Diet to be increased and reassessed tomorrow. He is hungry now. No CP or SOB. - Constitutional Vitals: Temp Pulse Resp BP Pulse Ox 98.5 F 87 16 132/78 98 01/11/18 14:55 01/11/18 14:55 01/11/18 14:55 01/11/18 14:55 01/11/18 14:55 General appearance: Present: cooperative, A&O X 3, no acute distress, answers questions appropriately - Head Head exam: Present: normocephalic - Eye Eye exam: Present: EOMI, conjuntiva pink - ENT ENT exam: Present: mucous membranes moist - Respiratory Respiratory exam: Present: CTAB. Absent: rhonchi, wheezes - Cardiovascular Cardiovascular exam: Present: RRR. Absent: tachycardia - GI/Abdominal GI/Abdominal exam: Present: soft. Absent: distended - Extremities Exam Extremities exam: Present: warm. Absent: tenderness - Neurological Exam Neurological exam: Present: alert, oriented X3, no focal deficits - Skin Skin exam: Present: dry, warm Internal Medicine: Result - Labs CBC & Chem 7: 01/11/18 04:44 01/11/18 04:44 Labs: Short CBC 01/11/18 Range/Units 04:44 WBC 5.4 (4.3-11.1) K/mcL Hgb 14.0 (12.9-16.9) g/dL Hct 42.5 (37.5-50.1) % Plt Count 197 (140-400) K/mcL Neutrophils # 3.0 (1.6-8.9) K/mcL BMP 01/11/18 04:44 Sodium 137 Potassium 4.1 Chloride 104 Carbon Dioxide 27 BUN 13 Creatinine 1.07 Glucose 96 Calcium 9.3 - Impressions Impressions KUB X-Ray 01/11/18 11:27 IMPRESSION: No acute abdominal radiographic abnormality. D/ / Noelle Lucero Cha, MD / Noelle Lucero Cha, MD Interpreting Provider: Noelle Lucero Cha, MD Abdomen/Pelvis CT 01/11/18 14:45 IMPRESSION: 1. Resolved small bowel obstruction. No acute abdominopelvic process demonstrated currently 2. Interval worsening of right lower lobe infiltrate D/ / Uche Denise MD / Uche Denise MD Interpreting Provider: Uche Denise MD Consult Discharge Plan - Plan Referrals: Jannette Manjarrez, CUSTOMER SERVICE ASSISTANT [Primary Care Provider] -
[2018-01-12] MEDS: Pantoprazole 40 MG VIAL IVP SCH (05:46)
[2018-01-12 07:13] VITALS: BP 114/77
--- NOTE | 2018-01-12 09:18 | General Surgery Progress Note ---
Date of Encounter: 01/12/18 Time of Encounter: 09:16 - Assessment and Plan (1) Abdominal pain Current Visit: Yes Status: Acute 42-year-old male with PMHx of bowel resection as a presenting with recurrence of long-standing history of abdominal pain. Patient having bowel function. -SBFT WNL -CT abdomen/pelvis with IV and oral contrast demonstrates resolved SBO. -Patient tolerating regular diet. -Okay for discharge from a surgical perspective. -Per patient's request, he would like follow-up with Dr. Hunt for potential diagnostic laparoscopy as an outpatient. -Follow-up to be scheduled with Dr. Hunt. Qualifiers: Abdominal location: generalized Qualified Code(s): R10.84 - Generalized abdominal pain (2) Community acquired pneumonia Current Visit: Yes Status: Acute CT abdomen and pelvis on 01/11/2018 demonstrates interval worsening of right lower lobe infiltrate. -Continue management per primary team. Qualifiers: Laterality: right Lung location: middle lobe of lung Qualified Code(s): J18.1 - Lobar pneumonia, unspecified organism Subjective Patient reports: no new complaints, feels better, tolerating a regular diet, voiding w/o difficulty, flatus, bowel movement, afebrile Objective Vital Signs - Last 8 Hours Temp Pulse Resp BP Pulse Ox 01/12/18 07:08 97.7 F 83 15 114/77 97 01/12/18 04:06 98.9 F 81 16 122/79 97 Intake and Output 01/11/18 01/12/18 01/12/18 22:59 07:59 15:59 Intake Total Balance Intake: IV Fluids Levaquin Premix 750mg/150 mL 750 mg In 150 ml @ 100 mls/hr IVPB Q24H [facility] Rx#:[id number] Oral Other: # Voids Weight Patient Weight 01/13/18 00:59 Weight 89.41 kg - General physical appearance well developed, well nourished, no distress - ENT normocephalic, CN 2-12 grossly intact - Respiratory normal expansion, normal respiratory effort, clear to auscultation - Cardiovascular Cardiovascular exam: Present: RRR, no murmurs/rubs/gallops - Abdomen Abdomen: Present: bowel sounds present, soft, non tender, surgical scars Hernia: none - Integumentary no rash - Neurologic CN 2-12 grossly intact, normal coordination - Musculoskeletal normal gait, normal posture - Psychiatric oriented to time, oriented to person, oriented to place, speech is normal, memory intact - Labs 01/11/18 04:44 01/11/18 04:44 Consult Discharge Plan - Plan Referrals: Jannette Manjarrez CNP [Primary Care Provider] - Basia Hunt MD [Partnered Physician] - (per patient request.)
--- NOTE | 2018-01-12 09:21 | Discharge Summary ---
Orders not resulted at time of discharge: Pending orders 01/12/18 04:00 BMP [Basic Metabolic Panel] AM 0400 Complete Blood Count [HEME] AM 0400 Date of Encounter: 01/12/18 Time of Encounter: 09:00 - Discharge Diagnosis (1) Partial small bowel obstruction Priority: Primary Status: Resolved (2) Pneumonia Priority: Primary Status: Suspected Qualifiers: Pneumonia type: due to Pneumococcus Laterality: right Lung location: middle lobe of lung Qualified Code(s): J13 - Pneumonia due to Streptococcus pneumoniae (3) Dehydration Priority: Secondary Status: Resolved (4) Hypertension Priority: Secondary Status: Chronic Qualifiers: Hypertension type: essential hypertension Qualified Code(s): I10 - Essential (primary) hypertension (5) Sepsis Priority: Secondary Status: Resolved Qualifiers: Sepsis type: sepsis due to unspecified organism Qualified Code(s): A41.9 - Sepsis, unspecified organism (6) Hypercalcemia Priority: Secondary Status: Resolved Hospital course: Mr. Dunn is a 42 year old male with hx of HTN presented to ED with complaints of severe abdominal pain. In ED he was found to have probable SBO and was subsequently admitted. Mr Dunn was admitted to med surg. He initially was NPO with pain control. He was also noted to have an infiltrate on CXR which was concerning for pneumonia. He was started on abx as well. He was dehydrated and IV fluids were given. He was seen by surgery and no immediate surgical intervention was needed. He was given IV meds for his blood pressure. His calcium was also initially elevated but improved with hydration. On 01/10 he had some improvement in his symptoms. He underwent UGI/SBFT which did not reveal significant obstruction. He was started on clear liquids at that time. He tolerated this well. On 01/[address] which showed resolution of SBO. Diet was increased. Today he is afebrile. He is tolerating full diet. He will be discharged home with outpatient surgical follow up. Discharge discussed with: patient, nurse - Time Spent with Patient Total time spent providing and/or coordinating discharge services: 41min - Discharge Medications Prescriptions: levoFLOXacin [Levaquin] 750 mg PO DAILY #3 tablet Home Medications: Ibuprofen [Motrin] 800 mg PO Q8HR PRN 09/14/16 [History] Pantoprazole Sodium [Protonix] 40 mg PO BID 09/14/16 [History] amLODIPine [Norvasc] 5 mg PO DAILY 09/14/16 [History] Lisinopril/Hydrochlorothiazide [Zestoretic 20-25 mg Tablet] 1 each PO DAILY 06/21 [History] Psyllium Husk [Fiber] 1.04 gm PO DAILY 01/09/18 [History] Acetaminophen [Tylenol] 650 mg PO Q6HR PRN tablet 01/12/18 [Rx] levoFLOXacin [Levaquin] 750 mg PO DAILY #3 tablet 01/12/18 [Rx] Allergies/Adverse Reactions: 3 Allergy/AdvReac Type Severity Reaction Status Date / Time Amoxicillin Allergy Hives Verified 09/14/16 09:09 Penicillins [PCN] Allergy Hives Verified 09/14/16 09:09 Date of admission: 01/09/18 18:30 Primary care physician: Jannette Manjarrez CNP Consults: Marilee Discharging clinician: Scott Raza Anticipated date of discharge: 01/12/18 - Constitutional Vitals: Temp Pulse Resp BP Pulse Ox 97.7 F 83 15 114/77 97 01/12/18 07:08 01/12/18 07:08 01/12/18 07:08 01/12/18 07:08 01/12/18 07:08 General appearance: Present: cooperative, A&O X 3, answers questions appropriately - Head Head exam: Present: normocephalic - Eye Eye exam: Present: EOMI, conjuntiva pink - ENT ENT exam: Present: mucous membranes dry - Respiratory Respiratory exam: Present: CTAB. Absent: rhonchi, wheezes - Cardiovascular Cardiovascular exam: Present: RRR. Absent: tachycardia - GI/Abdominal GI/Abdominal exam: Present: soft. Absent: tenderness - Extremities Exam Extremities exam: Present: warm. Absent: tenderness - Neurological Exam Neurological exam: Present: alert, oriented X3, no focal deficits - Skin Skin exam: Present: dry, warm - Patient Status Disposition: Home, Self-Care Condition: Good Functional capacity at discharge: independent ambulation Overall status at discharge: patient is progressing back to baseline - Discharge Instructions Follow Up With: Basia Hunt MD [Partnered Physician] - (per patient request.) Jannette Manjarrez CNP [Primary Care Provider] - Additional Instructions: Follow up with Dr. Hunt as arranged. Return for new or worsening symptoms. - Diet and Activity Activity: increase activity as tolerated Diet: advance to your usual diet
[2018-01-12] MEDS ORDERED: levoFLOXacin 750 MG TABLET PO ONE (09:29)
== END 2018-01-12 10:42 | disposition home or self-care (01) | DRG 388 ==
LOC: EMEROO 16:04 → 3ANU 16:04 → SUATTDRO 18:30 → 3ANU 18:52
PROVIDERS: ADMIT Internal Medicine; ATTEND Internal Medicine